=== PATIENT | male | born 1960 ===

== ENCOUNTER 2024-12-13 19:20 | Emergency (ER) | payer MEDICARE, MEDICAID, SELFPAY ==
[2024-12-13 19:27] VITALS: PULSE 87; RESP 20; TEMP 36.7; O2SAT 98
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
[2024-12-13 19:56] LABS: Abs Immature Grans 0.02 10^3/uL (0.0-0.06); Absolute Basophil Count 0.02 10^3/uL (0.0-0.2); Absolute Eosinophil Count 0.15 10^3/uL (0.0-0.7); Absolute Lymphocyte Count 0.84 10^3/uL (1.2-3.4); Absolute Monocyte Count 0.51 10^3/uL (0.1-0.8); Absolute Neutrophil Count 3.88 10^3/uL (1.2-6.7); Basophils % 0.4 %; Eosinophils % 2.8 %; HCT 34.7 % (40.0-50.0); HGB 11.4 g/dL (13.5-17.5); Immature Grans % 0.4 %; Lymphocytes % 15.5 %; MCH 32.1 pg (27.0-33.0); MCHC 32.9 % (32.0-36.0); MCV 98 fL (80-95); MPV 8.8 fL (8.0-11.0); Monocytes % 9.4 %; Neutrophils % 71.5 %; Platelet Count 222 10^3/uL (130-400); RBC 3.55 10^6/uL (4.36-5.78); RDW 13.1 % (11.8-14.1); RDW-SD 46.8 fL; WBC 5.42 10^3/uL (4.4-10.8)
[2024-12-13] MEDS: LORazepam 1 MG TAB PO (20:14)
[2024-12-13] MEDS: OLANZapine ODT 5 MG TAB PO (20:14)
[2024-12-13 20:21] LABS: ALT 17 U/L (16-63); AST 12 U/L (15-37); Albumin 3.3 g/dL (3.4-5.0); Alkaline Phosphatase 141 U/L (46-116); BUN 16 mg/dL (7-18); Bilirubin, Total 0.27 mg/dL (0.2-1.0); CREATININE 0.7 mg/dL (0.70-1.30); Calcium 8.6 mg/dL (8.5-10.1); Chloride 106 mmol/L (98-107); Estimated GFR 103.53 (mL/min/1.73m2); Glucose 97 mg/dL (74-106); Magnesium 1.5 mg/dL (1.8-2.4); Potassium 3.4 mmol/L (3.5-5.1); Sodium 144 mmol/L (136-145); TSH (W/Ref FT4) 2.65 uIU/mL (0.36-3.74)
[2024-12-13 20:23] LABS: ETHANOL BLOOD < 3.0 mg/dL (<10)
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
[2024-12-14] MEDS: Magnesium Gluconate 500 MG TAB PO (08:45)
[2024-12-14] MEDS: OLANZapine ODT 5 MG TAB PO ×2 (08:45→19:17)
[2024-12-14] MEDS: LORazepam 1 MG TAB PO ×2 (08:46→19:17)
[2024-12-14 08:55] VITALS: BP 132/66; PULSE 68; RESP 18; TEMP 36; O2SAT 95
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
--- NOTE | 2024-12-14 18:41 | CMPROGNOTE_ITS ---
Date of service: 12/14/24 Time of Service: 18:41 Care Management Progress Note Progress Note Text Progress Note Text: CM huddled with staff this morning to discuss Scott's plan of care. He was brought in by [facility] on a warrant/EE hold, and at that time, the second c ertification was pending. Scott is a DS client who has been having increasing concerning behaviors in the community. He has been housed recently at [facility] crisis beds in [place] and [facility], and was recently hospitalized at [facility] and [facility]. He has been reportedly aggressive toward staff, incontinent of urine and feces, and has been wandering out of the crisis beds without shoes, which has led to wounds on his feet. While in zone B, he has been ambulatory, and has shown intermittent aggression toward staff. His second certification was not upheld, therefore [facility] has dete rmined that he is not a person in need of psychiatric care. [facility] held a meeting with DS staff, ES staff, and the [facility] clinical laboratory medical director; RACHELL asked to be a part of the meeting, along with the RN cofferdam construction supervisor and charge rn in the ED. During this meeting, [facility] staff expressed concern about caring for Scott in the community. They have at times, required 4:1 staffing for Scott, due to his behaviors. [facility] does not have the capacity to staff Scott 4:1, therefore his aggressive behavior is also a risk to [facility] staff. DS staff reached out to GISELL today, who assisted in sending a referral to [facility], a SNF that can handle difficult behaviors; this is a long-term plan and can take weeks/months for admission, if accepted. RACHELL notified staff that now that Scott is no longer a medical or psychiatric patient, he will need to be discharged to their care, as they are his medical home in the community. Based on documentation, and reports from staff, Scott's behaviors are chronic, although they appear to have been escalating over the past nine months. staff asked for [facility] to hold Scott overnight, and to take a closer look at his feet, as they are concerned with the wounds he presented with. Dr. Fontanez agreed to attempt to do this, although it appears he had a thorough exam and medical clearance on 12/13/24. RACHELL also informed [facility] that Scott has the right to refuse care, which has been a pattern they noted within the community. CM asked that [facility] DS contact [facility] ED charge rn tomorrow by noon to discuss their discharge plan for Scott. If there is a medical reason for admission, [facility] staff will notify DS. [facility] has requested a nurse to nurse report prior to Scott's discharge. See below for DS contact information. CM will continue to follow. Kenia Sampson [facility] DS Director: [phone] Danyell Atkinson [facility] Watch Guard Gate: [phone] (H); [phone] (C) Sagrario Alvarez [facility] DS RN: [phone] Social Determinants of Health Screening Will the Patient Participate in the Screening?: Unable to obtain
--- NOTE | 2024-12-14 18:41 | PDOC.CMPRO ---
Date of service: 12/14/24 Time of Service: 18:41 Care Management Progress Note Progress Note Text Progress Note Text: CM huddled with staff this morning to discuss Scott's plan of care. He was brought in by [facility] on a warrant/EE hold, and at that time, the second certification was pending. Scott is a DS client who has been having increasing concerning behaviors in the community. He has been housed recently at [facility] crisis beds in [place] and [facility], and was recently hospitalized at [facility] and [facility]. He has been reportedly aggressive toward staff, incontinent of urine and feces, and has been wandering out of the crisis beds without shoes, which has led to wounds on his feet. While in zone B, he has been ambulatory, and has shown intermittent aggression toward staff. His second certification was not upheld, therefore [facility] has determined that he is not a person in need of psychiatric care. [facility] held a meeting with DS staff, ES staff, and the [facility] medical resident; CM asked to be a part of the meeting, along with the RN branch logistics supervisor and charger operator helper in the ED. During this meeting, [facility] staff expressed concern about caring for Scott in the community. They have at times, required 4:1 staffing for Scott, due to his behaviors. [facility] does not have the capacity to staff Scott 4:1, therefore his aggressive behavior is also a risk to [facility] staff. staff reached out to GISELL today, who assisted in sending a referral to [facility], a SNF that can handle difficult behaviors; this is a retirement plan and can take weeks/months for admission, if accepted. CM notified staff that now that Scott is no longer a medical or psychiatric patient, he will need to be discharged to their care, as they are his medical home in the community. Based on documentation, and reports from staff, Scott's behaviors are chronic, although they appear to have been escalating over the past nine months. staff asked for [facility] to hold Scott overnight, and to take a closer look at his feet, as they are concerned with the wounds he presented with. Dr. Fontanez agreed to attempt to do this, although it appears he had a thorough exam and medical clearance on 12/13/24. RACHELL also informed [facility] that Scott has the right to refuse care, which has been a pattern they noted within the community. CM asked that [facility] DS contact [facility] ED charger operator helper tomorrow by noon to discuss their discharge plan for Scott. If there is a medical reason for admission, [facility] staff will notify DS. [facility] has requested a nurse to nurse report prior to Scott's discharge. See below for DS contact information. CM will continue to follow. Kenia Sampson [facility] DS Director: [phone] Danyell Atkinson [facility] Control Room Tender: [phone] (H); [phone] (C) Sagrario Alvarez [facility] DS RN: [phone] Social Determinants of Health Screening Will the Patient Participate in the Screening?: Unable to obtain
--- NOTE | 2024-12-14 19:54 | W.EDPROG ---
Date of service: 12/14/24 Time of Service: 21:34 Medical Decision Making In brief, this is a 64-year-old male patient with a history of psychiatric and mood disturbances, resides at a care facility, brought in with increasingly aggressive behaviors. Prior to my taking over their care, the patient was medically cleared, and has been resting comfortably. He has been taking his medications voluntarily and has not had aggressive behaviors towards our staff members over my shift. They have met with the nursing home social worker and did not meet criteria for involuntary hold. The patient does have some injuries/wounds to his feet, which were documented by the prior provider, and for which the patient is currently declining wound care bandaging. Plan to have the patient return to his care facility tomorrow as long as his behaviors continue to be well-controlled here in the emergency department. The patient was signed out to the oncoming provider prior to final disposition. Remained hemodynamically appropriate, calm, cooperative, and comfortable while under my care. Debbie Rob MD Medical Records Medical records reviewed: Yes I reviewed the patient's medical records. Lab Data Lab results reviewed: Yes I reviewed the patient's lab results. Quality:SDOH Health Related Social Needs: No Data to Display Discharge Plan Discharge Details Chief Complaint: PsychEval Clinical Impression: Aggressive behavior Primary Care Provider: Unknown,Unknown ED Provider: Debbie Rob Home Meds and New Rx's Prescriptions: No Action olanzapine 5 mg tablet,disintegrating 5 mg PO BID lorazepam [Ativan] 1 mg tablet 1 mg PO TID Rx Instructions: ALSO X2 PRN DOSES AVAILABLE
--- NOTE | 2024-12-15 07:17 | ED.PROG_ITS ---
Date of service: 12/15/24 Time of Service: 07:17 Medical Decision Making No acute overnight events, anticipate return to care facility today. 9 AM I spoke to Danyell Cole, medical officer psychiatry [facility], she is helping to arrange for the patient to return to his residential. 4:20 PM Patient's nurse Doug will travel to basic EMS crew to bring the patient back to his residential. I have ordered him 5 mg midazolam as needed for agitation. He will receive 2 mg of oral lorazepam prior to transport. Quality:SDOH Health Related Social Needs: No Data to Display Discharge Plan Disposition Patient Disposition: Home Discharge Details Clinical Impression: Aggressive behavior Primary Care Provider: Unknown,Unknown ED Provider: Felipe Fontanez [place] Meds and New Rx's Prescriptions: Continued olanzapine 5 mg tablet,disintegrating 5 mg PO BID lorazepam [Ativan] 1 mg tablet 1 mg PO TID Rx Instructions: ALSO X2 PRN DOSES AVAILABLE Discharge Instructions Additional Instructions: You are seen in the emergency department for your agitation. Please continue taking your home medications as previously prescribed. If you do not feel safe at home please return to the emergency department. Discharge Data Discharge Date/Time-TO BE ENTERED AT DEPARTURE: 12/15/24 17:14
[2024-12-15] MEDS: LORazepam 1 MG TAB PO ×2 (15:48→16:45)
== END 2024-12-15 17:14 | disposition home or self-care (01) ==
PROVIDERS: Emergency Medicine; Emergency Provider Emergency Medicine
DX: R45.1 Restlessness and agitation (principal); F89 Unspecified disorder of psychological development; T33.822A Superficial frostbite of left foot, initial encounter; T33.821A Superficial frostbite of right foot, initial encounter; X31.XXXA Exposure to excessive natural cold, initial encounter; Y93.01 Activity, walking, marching and hiking
CPT/HCPCS: 00123; 80053; 80307; 99285; 80320; 81003; 83735; 84443; 85025

== ENCOUNTER 2024-12-17 15:42 | Observation (INO) | payer MEDICARE, MEDICAID, SELFPAY ==
[2024-12-17] VITALS (28 sets, daily range): BP systolic 120–149; BP diastolic 46–95; PULSE 60–118; RESP 16; TEMP 37.5; O2SAT 80–100
--- NOTE | 2024-12-17 15:45 | DI.CT_ITS ---
Exam(s) CT HEAD WO EXAM: CT HEAD WO CLINICAL HISTORY: AMS, increased agitation, hx frontal lobe dementia. TECHNIQUE: Imaging Protocol: Axial computed tomography images with coronal and sagittal reformatted images were created and reviewed COMPARISON: No exams were available for comparison FINDINGS: Ventricles and Extra axial spaces: Normal in size and morphology for the patient's age. Hemorrhage: None. Cerebral parenchyma: There are areas of decreased attenuation in the white matter consistent with chr onic microvascular ischemic disease. No acute mass effect is identified. Midline shift: None. Brainstem/Cerebellum: Normal. Calvarium: Normal. Visualized Paranasal sinuses/Mastoids: Clear. Soft Tissues: Unremarkable. IMPRESSION: No acute intracranial process. RADIATION DOSE DELIVERED: 946.29mGy.cm Total DLP DATA REPOSITORY: All CT scans at this facility are submitted to the National Radiology Data Registry (NRDR) Dose Index Registry (DIR) with the [employer] (ACR). RADIATION OPTIMIZATION: All CT scans at this facility use at least one of these dose optimization te chniques: automated exposure control; mA and/or kV adjustment per patient size (includes targeted exa ms where dose is matched to clinical indication); or iterative reconstruction.
--- NOTE | 2024-12-17 15:53 | DI.RAD_ITS ---
Exam(s) XR CHEST 1V IN DI DEPT EXAM: XR CHEST 1V IN DI DEPT CLINICAL HISTORY: AMS, sepsis work up TECHNIQUE: 2D digital imaging was performed of the chest. One image was obtained. An AP view was ob tained. COMPARISON: No exams were available for comparison FINDINGS: MEDIASTINUM: Normal. HEART: Normal. PULMONARY VASCULATURE: Normal. LUNGS: Question of a faint rounded density projected over the right mid lung. This may represent a s uperimposition of shadows. The lungs are otherwise clear. PLEURAL SPACE: No pleural effusion or pneumothorax. BONE:Within normal limits for the patient's age. OTHER FINDINGS:Normal. IMPRESSION: Question of a faint rounded density projected over the right mid lung. A PA and lateral view of the chest in the department is recommended for further evaluation. DATA REPOSITORY: RADIATION DOSE DELIVERED:
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
[2024-12-17 16:23] LABS: Lactate 3.2 mmol/L (<or=2.0)
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
[2024-12-17 16:30] LABS: Abs Immature Grans 0.01 10^3/uL (0.0-0.06); Absolute Basophil Count 0.01 10^3/uL (0.0-0.2); Absolute Eosinophil Count 0.05 10^3/uL (0.0-0.7); Absolute Monocyte Count 0.46 10^3/uL (0.1-0.8); Absolute Neutrophil Count 3.23 10^3/uL (1.2-6.7); Basophils % 0.2 %; Eosinophils % 1.1 %; HCT 32.6 % (40.0-50.0); HGB 10.6 g/dL (13.5-17.5); Immature Grans % 0.2 %; Lymphocytes % 15.7 %; MCHC 32.5 % (32.0-36.0); MCV 102 fL (80-95); MPV 8.9 fL (8.0-11.0); Monocytes % 10.3 %; Neutrophils % 72.5 %; Platelet Count 199 10^3/uL (130-400); RBC 3.21 10^6/uL (4.36-5.78); RDW 13.4 % (11.8-14.1); RDW-SD 49.6 fL; WBC 4.46 10^3/uL (4.4-10.8)
[2024-12-17] MEDS: Lactated Ringers 1,000 ML 1000 ML IV (16:39)
[2024-12-17 16:41] LABS: INR 1.8 (0.9-1.1); Prothrombin Time 17.5 sec (9.1-11.1)
[2024-12-17 16:56] LABS: ALT 19 U/L (16-63); AST 20 U/L (15-37); Albumin 2.8 g/dL (3.4-5.0); Alkaline Phosphatase 121 U/L (46-116); Anion Gap 8.2 mmol/L (3-11); BUN 17 mg/dL (7-18); Bilirubin, Total 0.34 mg/dL (0.2-1.0); CO2 29.8 mmol/L (21.0-32.0); CREATININE 0.6 mg/dL (0.70-1.30); Chloride 107 mmol/L (98-107); Estimated GFR 108.47 (mL/min/1.73m2); Glucose 107 mg/dL (74-106); Magnesium 1.7 mg/dL (1.8-2.4); Potassium 3.6 mmol/L (3.5-5.1); Sodium 145 mmol/L (136-145); TSH (W/Ref FT4) 1.85 uIU/mL (0.36-3.74); Total Protein 6.6 g/dL (6.4-8.2); Troponin I 7 ng/L (<or=76)
[2024-12-17 17:31] LABS: Troponin I 12 ng/L (<or=76)
[2024-12-17 18:50] LABS: TROPONIN-I < 0.5 ug/mL (4.0-12.0)
[2024-12-17 20:59] LABS: Bilirubin Negative (Negative); Blood Trace-intact (Negative); Clarity Clear (Clear); Glucose Negative (Negative); Ketones Negative (Negative); Leukocyte Esterase Negative (Negative); Nitrite Negative (Negative); Specific Gravity 1.015 (1.005-1.025)
[2024-12-17 21:04] LABS: WBC 0-2 HPF (0-5)
[2024-12-17 21:05] LABS: Bacteria Rare HPF (Negative); C & S Indicated? No; Casts Negative LPF (Negative); Crystals Negative HPF (Negative); Epithelial Cells Negative HPF (Negative); Mucus Trace (Negative); RBC 0-2 HPF (0-2)
--- NOTE | 2024-12-17 22:39 | W.PM.HP.N ---
Date of service: 12/17/24 Time of Service: 22:39 Assessment and Plan Assessment and plan (1) Cellulitis: Start date: 12/17/24 Status: Acute Assessment and plan: This is a 64-year-old gentleman who lives in a skilled nursing and is doing poorly with self-care. He recently had decompensation after walking and very cold weather where he wanders outside sustaining at least second-degree frostbite over his soles now appearing infected be superficially with fecal contamination and growth of maggots in his wound. He was given 1 dose of vancomycin but will be switched to Augmentin 875 mg twice daily. He also may have an infiltrate over his lung bose though he has had no respiratory symptoms. He refused viral screening. Augmentin should cover pneumonic process as well. Wound care to be consulted and social media marketing manager for placement to level 2 facility would be appropriate. The patient does not appear to be able to take care of himself and take his own medications. He also wonders which requires increased supervision. He is also very poor with his hygiene having a history of throwing his feces around and being incontinent of feces. He may have advancing follow-up dementia. He will be admitted for observation to have all of the services reviewed before plans for long-term care. Follow-up chest x-ray. He is a full code. (2) Frostbite of both feet: Start date: 12/17/24 Status: Acute Assessment and plan: Patient appears to have at least second-degree frostbite over his feet by history and initial evaluation in ED. Wound care was consulted. Continue Augmentin for possible secondary infection. (3) Hypomagnesemia: Start date: 12/17/24 Status: Acute Assessment and plan: Replete IV and follow-up lab daily. (4) Frontal lobe dementia: Status: Chronic Assessment and plan: Continue Zyprexa and Ativan as needed. Supervision of meds would be better. (5) Epilepsy: Assessment and plan: No antibiotic medication listed on his medication list and this need to be reviewed with his skilled nursing and PCP. Follow-up clinically. History of Present Illness History of Present Illness Chief Complaint: Increased confusion and inability to walk with wounds over feet. Narrative: This is a 64-year-old male patient who has a history of frontal lobe dementia on Zyprexa twice daily which she has to take on his own and has been missing. He recently wandered outside in negative second-degree weather and had blisters over the feet which have been contaminated with his incontinent stool and poor hygiene. Over the last 2 to 3 days he had decreased ability to take care of himself and walk and has been missing his medications. He is over seizures and is skilled nursing for concern about his wounds being infected with his stool contamination and swelling. He also is more confused. He was brought to the ED and his wounds were evaluated and cleaned with fecal material removed and maggots being removed. There was some swelling but no erythema or increased warmth and the patient was tender over his feet. He also had increased confusion and imaging did not reveal any acute changes in the CT of the head and the chest x-ray had suspicion of right opacity which will be followed up. He did not have any lower respiratory symptoms. He had no fever. Has had no cough or upper respiratory symptoms. The patient was agitated in the ED and was given his usual late day medications upon admission. He was assessed as not being able to take care of himself in his present living situation and was admitted to observation for treatment of his contaminated and at least superficially infected feet from frostbite with blistering and for follow-up on his chest x-ray with abnormalities. He did not have fever or elevation in his WBC. He did not allow nasal swab for flu/RSV/COVID screening. He is a full code. Review of Systems Narrative: 13 point review of systems otherwise unobtainable or reported as stable. PFS All Active Problems (Updated 12/18/24 @ 02:21 by Harman Parsons) Hypomagnesemia (Acute) Incontinence of feces (Acute) Infected wound (Acute) Cellulitis (Acute) Frostbite of both feet (Acute) Frontal lobe dementia (Chronic) Aggressive behavior (Acute) Medical History Epilepsy Intellectual disability Social History Smoking/Tobacco Use Status: Never Smoking risk assessment performed?: Yes Alcohol Intake: never Drug use: Never Substance use type: does not use Housing: assisted living facility Additional Social history: [employer] Meds Allergies and Home Medications Allergies Allergy/AdvReac Type Severity Reaction Status Date / Time grass pollen Allergy Intermediate Itching Verified 12/13/24 19:37 house dust mite Allergy Mild Skin Rash Verified 12/13/24 19:37 Home Medications ?Medication ?Instructions ?Recorded ?Confirmed ?Type lorazepam 1 mg tablet (Ativan) 1 mg PO TID 12/13/24 12/17/24 History olanzapine 5 mg disintegrating 5 mg PO BID 12/13/24 12/17/24 History tablet Exam Narrative Exam Narrative: General: Patient is abnormally thin, disheveled with unkempt hair and lock and easily agitated upon approach. With complaint approach the patient allowed exam. He was at least oriented to place. He was intermittently in distress especially when examining feet which were tender. HEENT: Normocephalic, course and facial features, unkempt facial hair and hair, eyes with pupils equal and reactive to light specially, extraocular movement intact and sclera anicteric. Oropharynx with poor dentition and moist mucosa. Neck: Supple without JVD. Back: Normal posture without CVA tenderness. Lungs: Decreased aeration of the right hemithorax compared to left otherwise clear to auscultation and percussion but no focalizing rales or rhonchi. No expiratory wheeze. Heart: Regular rate and rhythm with no murmurs or gallops appreciated. Abdomen: Scaphoid contour, soft and nontender to palpation no palpable hepatosplenomegaly. Genitalia/rectal: Exam deferred. Extremities: Swelling over the feet with feet bandaged and tender to palpation. Description by nurses of blistering with fecal contamination and 1-3 maggots found over his feet before cleansing. No increased warmth to touch. Atrophic scarred legs below the knee with no open sores. No joint swelling. Fair cap refill. Skin: Scarring with loss of hair over legs, otherwise normal color, warm and dry. Skin over the feet were not examined with bandages in place. Neuro: Cranial nerves II through XII appear to be gross intact. No focal motor deficits and no tremor. No increased tone. Psych: Agitated with abnormal mood but not delusional being able to converse once called. No abnormal thought processes manifested. Remote and recent memory not testable with patient's frontal lobe dementia and acute decompensation. There does not appear to be encephalopathic symptoms but possibly slightly worse than baseline dementia. Results Imaging Imaging Studies: EXAM: CT HEAD WO CLINICAL HISTORY: AMS, increased agitation, hx frontal lobe dementia. TECHNIQUE: Imaging Protocol: Axial computed tomography images with coronal and sagittal reformatted images were created and reviewed COMPARISON: No exams were available for comparison FINDINGS: Ventricles and Extra axial spaces: Normal in size and morphology for the patient's age. Hemorrhage: None. Cerebral parenchyma: There are areas of decreased attenuation in the white matter consistent with chronic microvascular ischemic disease. No acute mass effect is identified. Midline shift: None. Brainstem/Cerebellum: Normal. Calvarium: Normal. Visualized Paranasal sinuses/Mastoids: Clear. Soft Tissues: Unremarkable. IMPRESSION: No acute intracranial process. EXAM: XR CHEST 1V IN DI DEPT CLINICAL HISTORY: AMS, sepsis work up TECHNIQUE: 2D digital imaging was performed of the chest. One image was obtained. An AP view was obtained. COMPARISON: No exams were available for comparison FINDINGS: MEDIASTINUM: Normal. HEART: Normal. PULMONARY VASCULATURE: Normal. LUNGS: Question of a faint rounded density projected over the right mid lung. This may represent a superimposition of shadows. The lungs are otherwise clear. PLEURAL SPACE: No pleural effusion or pneumothorax. BONE:Within normal limits for the patient's age. OTHER FINDINGS:Normal. IMPRESSION: Question of a faint rounded density projected over the right mid lung. A PA and lateral view of the chest in the department is recommended for further evaluation. Labs 12/17/24 16:09 12/17/24 16:09 Labs: Laboratory Results - last 24 hr 12/17/24 12/17/24 12/17/24 16:09 16:23 17:11 WBC 4.46 RBC 3.21 L Hgb 10.6 L Hct 32.6 L MCV 102 H D MCH 33.0 MCHC 32.5 RDW 13.4 Plt Count 199 MPV 8.9 Immature Gran % 0.2 Neutrophils % 72.5 Lymphocytes % 15.7 Monocytes % 10.3 Eosinophils % 1.1 Basophils % 0.2 Nucleated RBC % 0.0 Absolute Neutrophils 3.23 Absolute Lymphocytes 0.70 L Absolute Monocytes 0.46 Absolute Eosinophils 0.05 Absolute Basophils 0.01 PT 17.5 H INR 1.8 H VBG Lactate 3.2 H* Sodium 145 Potassium 3.6 Chloride 107 Carbon Dioxide 29.8 Anion Gap 8.2 BUN 17 Creatinine 0.6 L Est GFR (CKD-EPI 2020) 108.47 Glucose 107 H Calcium 9.0 Magnesium 1.7 L Total Bilirubin 0.34 AST 20 ALT 19 Alkaline Phosphatase 121 H Troponin I 7 12 Total Protein 6.6 Albumin 2.8 L TSH 1.85 Urine Color Urine Clarity Urine pH Ur Specific [place] Urine Protein Urine Ketones Urine Blood Urine Nitrite Urine Bilirubin Urine Urobilinogen Ur Leukocyte Esterase Urine RBC Urine WBC Ur Epithelial Cells Urine Crystals Urine Bacteria Urine Casts Urine Mucus Ur Culture Indicated? Urine Glucose Carbamazepine 12/17/24 12/17/24 12/17/24 18:15 18:53 20:52 WBC RBC Hgb Hct MCV MCH MCHC RDW Plt Count MPV Immature Gran % Neutrophils % Lymphocytes % Monocytes % Eosinophils % Basophils % Nucleated RBC % Absolute Neutrophils Absolute Lymphocytes Absolute Monocytes Absolute Eosinophils Absolute Basophils PT INR VBG Lactate Sodium Potassium Chloride Carbon Dioxide Anion Gap BUN Creatinine Est GFR (CKD-EPI 2020) Glucose Calcium Magnesium Total Bilirubin AST ALT Alkaline Phosphatase Troponin I Cancelled Total Protein Albumin TSH Urine Color Yellow Urine Clarity Clear Urine pH 7.0 Ur Specific [place] 1.015 Urine Protein Negative Urine Ketones Negative Urine Blood Trace-intact H Urine Nitrite Negative Urine Bilirubin Negative Urine Urobilinogen 1.0 H Ur Leukocyte Esterase Negative Urine RBC 0-2 Urine WBC 0-2 Ur Epithelial Cells Negative Urine Crystals Negative Urine Bacteria Rare Urine Casts Negative Urine Mucus Trace Ur Culture Indicated? No Urine Glucose Negative Carbamazepine < 0.5 L Last Vital Signs Temp 37.5 C 12/17/24 15:50 Pulse 88 12/17/24 20:52 Resp 16 12/17/24 15:50 BP 124/76 12/17/24 20:52 Pulse Ox 100 12/17/24 20:52 Time Spent Time spent with Patient: >75 minutes Time was spent: preparing to see the patient(eg.review tests), obtaining and/or reviewing separately otained hiistory, ordering medications,tests, procedures, indepentently interpreting results and care coordination
[2024-12-17] MEDS: Amoxicillin 875/Clav. 125 TAB PO (22:47)
[2024-12-17 23:51] LABS: Lactate 2.1 mmol/L (<or=2.0)
[2024-12-18] MEDS: LORazepam 2 MG/ML VIAL (02:57)
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
[2024-12-18 11:16] VITALS: RESP 19
[2024-12-18] MEDS: LORazepam 2 MG/ML VIAL 1 MG IM (13:22)
--- NOTE | 2024-12-18 14:35 | PGE_ITS ---
Date of Service Date of service: 12/18/24 Time of Service: 14:45 Assessment and Plan Assessment and plan (1) Infected wound: Status: Acute Assessment and plan: - patient was initially given IV vanco in ER, this was changed over to Augmentin 875mg PO BID by night physician due to difficulties with IV. will continue for now pending cultures - i did send message out to Dr. Issa from podiatry to evaluate for further wound care - would consider imaging, but will hold off for now pending pods eval as this will definitely require conscious sedation - labs not obtained this AM, this will certainly be difficult moving forward in terms of monitoring treatment. i do see that the patient does not have a leukocytosis on initial draw (2) Frostbite of both feet: Status: Acute Assessment and plan: - wound care per pods, otherwise as noted above (3) Frontal lobe dementia: Status: Chronic Assessment and plan: - for now, patient is calm as long he is not disturbed. continue meds as ordered including scheduled ativan and olanzipine. nursing reports that patient will accept PO medications Subjective Subjective Interval history since last seen: Patient seen. Patient very combative, could not examine effectively at first. Patient was given ativan 1mg IM (would not let nurse access IV) and then held down by multiple staff members so i could examine his feet. Patient is unable to give any history or relevent details. Exam Extrem Other: multiple shallow ulcerations of both feet. most concerning is R foot with 2cm round ulceration on sole in mid-ball area that has some purulent discharge. this was cultured by nursing Objective Last Vital Signs Temp 37.5 C 12/17/24 15:50 Pulse 88 12/17/24 20:52 Resp 19 12/18/24 11:16 BP 124/76 12/17/24 20:52 Pulse Ox 100 12/17/24 20:52 Laboratory Results - last 24 hr 12/17/24 12/17/24 12/17/24 16:09 16:23 17:11 WBC 4.46 RBC 3.21 L Hgb 10.6 L Hct 32.6 L MCV 102 H D MCH 33.0 MCHC 32.5 RDW 13.4 Plt Count 199 MPV 8.9 Immature Gran % 0.2 Neutrophils % 72.5 Lymphocytes % 15.7 Monocytes % 10.3 Eosinophils % 1.1 Basophils % 0.2 Nucleated RBC % 0.0 Absolute Neutrophils 3.23 Absolute Lymphocytes 0.70 L Absolute Monocytes 0.46 Absolute Eosinophils 0.05 Absolute Basophils 0.01 PT 17.5 H INR 1.8 H VBG Lactate 3.2 H* Sodium 145 Potassium 3.6 Chloride 107 Carbon Dioxide 29.8 Anion Gap 8.2 BUN 17 Creatinine 0.6 L Est GFR (CKD-EPI 2020) 108.47 Glucose 107 H Calcium 9.0 Magnesium 1.7 L Total Bilirubin 0.34 AST 20 ALT 19 Alkaline Phosphatase 121 H Troponin I 7 12 Total Protein 6.6 Albumin 2.8 L TSH 1.85 Urine Color Urine Clarity Urine pH Ur Specific [place] Urine Protein Urine Ketones Urine Blood Urine Nitrite Urine Bilirubin Urine Urobilinogen Ur Leukocyte Esterase Urine RBC Urine WBC Ur Epithelial Cells Urine Crystals Urine Bacteria Urine Casts Urine Mucus Ur Culture Indicated? Urine Glucose Carbamazepine 12/17/24 12/17/24 12/17/24 18:15 18:53 20:52 WBC RBC Hgb Hct MCV MCH MCHC RDW Plt Count MPV Immature Gran % Neutrophils % Lymphocytes % Monocytes % Eosinophils % Basophils % Nucleated RBC % Absolute Neutrophils Absolute Lymphocytes Absolute Monocytes Absolute Eosinophils Absolute Basophils PT INR VBG Lactate Sodium Potassium Chloride Carbon Dioxide Anion Gap BUN Creatinine Est GFR (CKD-EPI 2020) Glucose Calcium Magnesium Total Bilirubin AST ALT Alkaline Phosphatase Troponin I Cancelled Total Protein Albumin TSH Urine Color Yellow Urine Clarity Clear Urine pH 7.0 Ur Specific [place] 1.015 Urine Protein Negative Urine Ketones Negative Urine Blood Trace-intact H Urine Nitrite Negative Urine Bilirubin Negative Urine Urobilinogen 1.0 H Ur Leukocyte Esterase Negative Urine RBC 0-2 Urine WBC 0-2 Ur Epithelial Cells Negative Urine Crystals Negative Urine Bacteria Rare Urine Casts Negative Urine Mucus Trace Ur Culture Indicated? No Urine Glucose Negative Carbamazepine < 0.5 L 12/17/24 23:45 WBC RBC Hgb Hct MCV MCH MCHC RDW Plt Count MPV Immature Gran % Neutrophils % Lymphocytes % Monocytes % Eosinophils % Basophils % Nucleated RBC % Absolute Neutrophils Absolute Lymphocytes Absolute Monocytes Absolute Eosinophils Absolute Basophils PT INR VBG Lactate 2.1 Sodium Potassium Chloride Carbon Dioxide Anion Gap BUN Creatinine Est GFR (CKD-EPI 2020) Glucose Calcium Magnesium Total Bilirubin AST ALT Alkaline Phosphatase Troponin I Total Protein Albumin TSH Urine Color Urine Clarity Urine pH Ur Specific [place] Urine Protein Urine Ketones Urine Blood Urine Nitrite Urine Bilirubin Urine Urobilinogen Ur Leukocyte Esterase Urine RBC Urine WBC Ur Epithelial Cells Urine Crystals Urine Bacteria Urine Casts Urine Mucus Ur Culture Indicated? Urine Glucose Carbamazepine Time Spent with Patient Time Spent with Patient: 25-34 minutes Time was spent: preparing to see the patient(eg.review tests), ordering medications,tests, procedures, counseling the patient and care coordination
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
[2024-12-18] MEDS: OLANZapine ODT 5 MG TAB PO (20:19)
[2024-12-18] MEDS: LORazepam 1 MG TAB PO ×2 (20:19→22:49)
[2024-12-18] MEDS: Amoxicillin 875/Clav. 125 TAB PO (20:19)
--- NOTE | 2024-12-18 23:37 | NUR.NOTE ---
Nursing Note: Pt change due to soiled brief. Securities involved. Total of 5 people to change. Pt followed instruction well while directly being cleaned up. Immediately following, pt threw empty trash can at staff, and a small personal snack bag. Pt frequently pulling at computer, and leaning out of the bed. Pt frequently pulling a cords- all possible cords removed.
--- NOTE | 2024-12-19 00:53 | NUR.NOTE ---
Nursing Note: Pt has disconnected and thrown the computer mouse. Item was removed and cleaned. Provider aware of persisting behaviors.
[2024-12-19] MEDS: LORazepam 1 MG TAB PO ×2 (01:15→11:18)
--- NOTE | 2024-12-19 01:28 | NUR.NOTE ---
Nursing Note: Per YE Hauser, pt got out of bed, and left a scratch. When I approached the door, pt was at the door frame with his brief around his ankles. I requested that the pt go back to bed. Pt turned around and went back to bed. Pt the took brief all the way off and threw it at myself. supervisor pit and auxiliaries notified and came to room. Ativan administered in chocolate ice cream per
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
[2024-12-19] MEDS: Amoxicillin 875/Clav. 125 TAB PO (11:17)
[2024-12-19] MEDS: OLANZapine ODT 5 MG TAB PO (11:17)
--- NOTE | 2024-12-19 11:29 | NUR.NOTE ---
Nursing Note: Patient has been asleep the entire morning, he was waking up long enough to reposition and then fell back asleep. [facility] arrived to speak with patient during a period that he was awake. The [facility] worker was able to sit in the chair for a few minutes and then the patient shouted get out, which the [facility] worker obliged. Two security officers were on standby outside the room during this visit. Shortly after the HS worker left and while security was still on the floor, this nurse approached patient to give morning medications. This nurse came in with the morning medications, needed to get computer on wheels as the computer in the room was not functioning. The patient got very agitated while waiting for computer and told this nurse to get out. This nurse stepped out of the room, at which point the patient threw his breakfast (safety tray) at this nurse. This nurse stood at the door with security, crushed meds, and placed in pudding. This nurse then stepped back into the room, gave the patient the pudding, and the patient was able to finish the pudding. Afterward he threw the pudding container across the room.
--- NOTE | 2024-12-19 11:56 | NUR.NOTE ---
Nursing Note: The patient got up out of bed and was walking around his room very restless. He had only his upper half dressed and was completely nude below the waist. The patient started to walk towards the door with the intention to come out of the room, security was called to be on standby when the patient began ambulating around the room. This nurse stopped the patient at the door and told him that he needed to put his pants on before leaving the room. The patient stopped, turned around, walked back to his bed, crawled in, and covered up in blankets. Security was updated and left the floor. Noted small spot of blood on the floor from patients foot wounds, unable reassess/redress due to patient agitation at this time.
--- NOTE | 2024-12-19 13:17 | NUR.NOTE ---
Nursing Note: The patient woke up and threw his full cup of water across the room. He then settled down in bed.
--- NOTE | 2024-12-19 13:39 | NUR.NOTE ---
Nursing Note: This nurse attempted to give afternoon medication, this nurse walked in and was immediately told to get out. He then threw his chocolate pudding at me, medication has been returned to [facility].
--- NOTE | 2024-12-19 14:00 | SUR.INTRAOP ---
Patient threw MS mug towards staff. Mug was empty. Patient is agitated and continued to refuse medication.
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
--- NOTE | 2024-12-19 15:37 | NUR.NOTE ---
Nursing Note: This nurse reattempted to give afternoon medication, the patient proceeded to throw the pudding across the room at this nurse. The medication was retrieved from the floor and wasted with witness.
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
[2024-12-19] MEDS: LORazepam 2 MG/ML VIAL IM (20:43)
--- NOTE | 2024-12-19 21:21 | NUR.NOTE ---
Nursing Note: Pt frequently out of bed to door frame, further damaging feet. Pt has taken most of his wound dressings off and thrown them around the room. Pt got out of bed, tried to enter room 210. When redirected, pt swung at [facility]. Pt then escorted back to bed by myself and security. Pt then swung at security. Pt stayed in bed for about 20 minutes. Pt got out of bed again and asked to return to bed. Pt again escorted to bed by security and myself. Pt agitated, swung again at myself once back in bed. Frequently out of bed back and forth to [facility]. Plan prior to IM administration: 3 staff for restraint and myself for administration. Administration site Left glute. Two staff for BUE, 1 staff for BLE. Just prior to IM Lorazepam administration I stated to pt that he was getting a shot of Ativan to help keep him and others safe. Medication administered without issue per MAR.
[2024-12-19 21:36] VITALS: RESP 19
[2024-12-19 22:00] VITALS: RESP 16
[2024-12-19 23:00] VITALS: RESP 16
--- NOTE | 2024-12-19 23:56 | NUR.NOTE ---
Nursing Note: pt currently awake. pt requested pizza, I offered pudding. Pt swatted when handed pudding. Pt offered carrots, which he ate yesterday. Pt threw plate of carrots at nursing staff. Pt also threw blanket and pants at staff.
[2024-12-20] VITALS: RESP 16
[2024-12-20 01:00] VITALS: RESP 16
--- NOTE | 2024-12-20 08:54 | NUR.NOTE ---
Nursing Note: Pt was asleep when this nurse came on shift. Breakfast was brought on safety tray and placed outside the room. The pt then woke up, this nurse asked if he would like breakfast and he said yes. Security was called prior to entering room, upon entering the room this nurse brought in breakfast tray and security followed. Breakfast tray was set on bedside table within pts reach. Both this nurse and security then walked out of the room, before we reached the door the pt threw his breakfast tray at us and it landed on the floor. The pt then settled back into bed once we were out of the room.
--- NOTE | 2024-12-20 09:44 | NUR.NOTE ---
Nursing Note: Pt woke up and threw his cloths, pushed side table, and told staff to verbally get out. Security was able to redirect pt back to his bed, Dr. Walls was in hallway and verbally updated about pts refusal to take morning medications or complete dressing change.
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
[2024-12-20] MEDS: LORazepam 2 MG/ML VIAL 1 MG IM (10:19)
--- NOTE | 2024-12-20 10:35 | NUR.NOTE ---
Nursing Note: This nurse was told that patients discharge order has been placed and that they requested that he have his dressing changed and medicated prior to transfer. Ness Thibodeaux in care management spoke with Dr. Walls about medication options as the patient as been agitated this morning (throwing things at staff, yelling get out, refusing care, and attempting to leave room requiring redirection). IM Ativan order was placed to help with agitation and patient safety prior to dressing change and transfer. This nurse with two security officers, lead nurse, one aid, and preceptee approached patient to give medication and dressing change. This nurse explained to patient that we were going to change his dressings and that prior to that we had a shot with Ativan in it to help keep him calm, the patient was agreeable and injection was given with no problem in left buttocks. This nurse then changed the dressing on his feet, instructions were relayed in a calm tone and patient was able to participate in following instructions during dressing change. The first dressing was changed without issue and most of the second dressing change was mostly completed. However, pt started to get more agitated. Dressing were completely changed but unable to completely put on the new fitted sheets. Later in the morning around 1041 pt had to be redirected as he fast walked to the room door three different times.
--- NOTE | 2024-12-20 11:53 | CMDISCH_ITS ---
Date of service: 12/20/24 Time of Service: 11:53 LACE Index Scoring Tool Questions: Length of Stay (in days): 3 Was the patient admitted via the E.D.?: Yes Comorbidities: Dementia E.D. Visits: 2 Answers: Total Score: 11 Risk of Readmission: High Risk Care Management Discharge Plan Reason for Hospitalization: cellulitis Discharge Plan: Scott will be discharged back to the [facility] crisis bed. He will transport via facility van with [facility] staff. Scott will follow up with his community providers and plan of care. Patient/Family Education Needs: Review of discharge instructions, limitations, follow up plan and discuss Ask Me Three. SDRI Health Related Social Needs: No Data to Display
== END 2024-12-20 11:37 | disposition other institution (70) ==
LOC: ER 17:50 → EDHOLD 23:20 → MS 12-18 08:31
PROVIDERS: Admitting Provider Family Medicine; Emergency Provider Emergency Medicine; Responsible Provider Hospitalist; Visit Provider Family Medicine
DX: T33.821A Superficial frostbite of right foot, initial encounter (principal); T33.822A Superficial frostbite of left foot, initial encounter; G31.09 Other frontotemporal neurocognitive disorder; F02.C11 Dementia in other diseases classified elsewhere, severe, with agitation; L03.116 Cellulitis of left lower limb; L03.115 Cellulitis of right lower limb; E83.42 Hypomagnesemia; G40.802 Other epilepsy, not intractable, without status epilepticus; R15.9 Full incontinence of feces; L97.522 Non-pressure chronic ulcer of other part of left foot with fat layer exposed; L97.512 Non-pressure chronic ulcer of other part of right foot with fat layer exposed; D64.9 Anemia, unspecified; Z91.83 Wandering in diseases classified elsewhere; X31.XXXA Exposure to excessive natural cold, initial encounter; G40.909 Epilepsy, unspecified, not intractable, without status epilepticus; Z79.899 Other long term (current) drug therapy
CPT/HCPCS: 00123; 80053; 85027; 87040; 87077; 96127; 96361; 96365; 96372; 99223; 99285; 70450; 71045; 80156; 81003; 81015; 83605; 83735; 84443; 84484; 85025; 85610; 87070; 87205; 99231; 99232; 99239; G0378; J2060; J3370

== ENCOUNTER 2024-12-21 19:38 | Emergency (ER) | payer MEDICARE, MEDICAID, SELFPAY ==
[2024-12-21] VITALS (16 sets, daily range): BP systolic 154; BP diastolic 36; PULSE 61–115; RESP 18–20; TEMP 36; O2SAT 97–100
[2024-12-21] MEDS: Droperidol 5 MG/2 ML VIAL (19:46)
[2024-12-21] MEDS: Midazolam 2 MG/2 ML VIAL (20:09)
[2024-12-21] MEDS: Midazolam 2 MG/2 ML VIAL 3 MG IM (20:29)
--- NOTE | 2024-12-21 20:38 | NUR.NOTE ---
Pt limbs being held for his safety and the safety of others. IM meds have been give, see MAR. Trial of not holding limb was done and pt again became combative and restless. Staff holding limbs again.
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
[2024-12-21] MEDS: Collagenase 30 GM TUBE TP (23:15)
--- NOTE | 2024-12-21 23:59 | W.EDPROG ---
Date of service: 12/22/24 Time of Service: 06:21 Medical Decision Making Patient signed out to me due to inability to safely discharge patient. He has been staying in a crisis bed but has become too much for staff there. He is medically cleared, Dr. Rob reports that his feet look quite good. He has been refusing medications at the crisis bed. He is not suicidal or homicidal but he is impulsive, difficult to control, lacks capacity to make decisions due to his dementia. Reportedly referrals have been placed by the director of crisis beds for higher level of care. He has been given a dose of IM Zyprexa around midnight and again this morning mostly for agitation and being aggressive. Trying to avoid physical restraints since the seem to potentially aggravate him more. He will be signed out to the [facility] day physician pending care management evaluation. We can involve [facility] but this does not appear to be psychiatric driven, more dementia related. Can ask for telepsych consult for recommendations regarding medications. Medical Records Medical records reviewed: Yes I reviewed the patient's medical records. Discharge Plan Discharge Details Chief Complaint: GenMedical Clinical Impression: Aggressive behavior, Frontal lobe dementia, Wound, open, foot Primary Care Provider: Unknown,Unknown ED Provider: Siva Shaw [facility] New Rx's Prescriptions: No Action amoxicillin-pot clavulanate 875-125 mg Tablet 1 tab PO BID 5 Days Qty: 10 0RF Santyl 250 unit/gram ointment 1 applic topical DAILY Qty: 30 0RF olanzapine 5 mg tablet,disintegrating 5 mg PO BID lorazepam [Ativan] 1 mg tablet 1 mg PO TID Rx Instructions: ALSO X2 PRN DOSES AVAILABLE
[2024-12-22] MEDS: OLANZapine 10 MG VIAL IM ×2 (01:20→06:08)
--- NOTE | 2024-12-22 01:27 | NUR.NOTE ---
Nursing Note: Pt given 10mg IM Zyprexa secondary to escalating behaviors (yelling, kicking, attempting to remove soft wrist restraints). Attempted to redirect with non-pharmacological interventions without success (dimming lights, explanation of situation, providing comforts ie blanket). Pt restrained with two security officers, two nurses and one rad tech. Pt tolerated injection well. Pt with one to one sitter.
--- NOTE | 2024-12-22 02:29 | NUR.NOTE ---
Nursing Note: Pt placed in upper extremity soft restraints at 0100. Pt remained in restraints from 0 to 220, pt remains safe and free of injury. CMST intact bilaterally. Pt resting with eyes closed, left side lying, breathing even and unlabored. Pt continues to have one to one sitter. See chart for restraint documentation.
--- NOTE | 2024-12-22 06:10 | NUR.NOTE ---
Pt jacket and pants are in the soil utility room with bracelet with label on it. Pt was changed and blue scrubs have been put on by nursing staff and security.
--- NOTE | 2024-12-22 07:11 | W.EDPROG ---
Date of service: 12/22/24 Time of Service: 07:11 Medical Decision Making I received signout on this 64-year-old male with history of frontal lobe dementia. He is pending assessment by psychiatry and care management. He received 10 mg twice of intramuscular olanzapine at midnight to 6 AM. He is pending a safe disposition. 7:55 AM I was called back to zone B as patient was reportedly choking on a cheesy potato. When I arrived patient was on the floor. His nurse Doug was performing back thrusts. Nursing gang supervisor Gracie and I encouraged Heimlich maneuver. Heimlich maneuver dislodged some food and patient began breathing again. He never lost consciousness. He began coughing. He has returned to the stretcher. I ordered a portable chest x-ray. Patient's nurse reported that he began wheezing after eating the potato. Will repeat vitals the patient appears to be oxygenating well. 10:24 AM Patient had a repeat oxygen saturation of 97%. Respirations 22. Chest x-ray without any infiltrate. Will continue to monitor the patient in the ED. 3:51 PM I spoke with Pat from [facility]. She is making arrangements to have the patient transported back to his living facility. I wrote him 2 mg of oral lorazepam. We do not have long-acting olanzapine on formulary and I am not comfortable prescribing this medication. 4:45 PM Patient willingly took 2 mg of oral lorazepam. I was in touch with Pat from [facility]. She reported that if patient ramped up his behavior again and refused to take medication that [facility] would not be the most appropriate facility. If this occurs EMS would contact medical control to discuss bypassing [facility] in favor of a tertiary care center with additional consult services such as psychiatry and neurology given the patient's frontal lobe dementia and need for control of his aggressive behavior. I signed transfer paperwork for the patient to be transferred via EMS. Quality:SDOH Health Related Social Needs: No Data to Display Discharge Plan Disposition Patient Disposition: Home Discharge Details Clinical Impression: Aggressive behavior, Frontal lobe dementia, Wound, open, foot Primary Care Provider: Unknown,Unknown ED Provider: Felipe Fontanez Home Meds and New Rx's Prescriptions: New amoxicillin-pot clavulanate 600-42.9 mg/5 mL Suspension For Reconstitution 7.3 ml PO BID Qty: 125 0RF Continued Santyl 250 unit/gram ointment 1 applic topical DAILY Qty: 30 0RF olanzapine 5 mg tablet,disintegrating 5 mg PO BID lorazepam [Ativan] 1 mg tablet 1 mg PO TID Rx Instructions: ALSO X2 PRN DOSES AVAILABLE Discontinued amoxicillin-pot clavulanate 875-125 mg Tablet 1 tab PO BID 5 Days Qty: 10 0RF Discharge Instructions Instructions: Wound Infection Additional Instructions: You are seen in the emergency department for your who have refusal to care for your wounds. Please take these antibiotics as directed. Please return if you develop any fevers cough or difficulty breathing.
--- NOTE | 2024-12-22 07:45 | DI.RAD_ITS ---
Exam(s) XR PORTABLE CHEST AP EXAM: XR PORTABLE CHEST AP CLINICAL HISTORY: Choking TECHNIQUE: 2D digital imaging was performed. COMPARISON: CR XR CHEST 1V IN DI DEPT from 12/17/2024 FINDINGS: Superior most portions of the lung apices are not included on the field of view. LUNGS: Clear. No pleural abnormality seen. HEART: Normal size. AORTA: Normal diameter. BONES: Unremarkable for age. Soft tissues: Unremarkable. IMPRESSION: No acute findings. DATA REPOSITORY: RADIATION DOSE DELIVERED:
[2024-12-22 07:58] VITALS: BP 162/70; PULSE 71; RESP 22; O2SAT 97
--- NOTE | 2024-12-22 08:00 | NUR.NOTE ---
Nursing Note: Pt was served cheese potatoes as he was given last admission and appeared to enjoy. Pt sitting in bed eating and watching TV. This mortgage loan underwriter noted that patient appeared to be choking and this mortgage loan underwriter entered room to patient hunched over and coughing up a small potato. Pt became very restless following this, got up and walked into the milieu with this mortgage loan underwriter following. This mortgage loan underwriter attempted to hear air flow as pt moving towards social area. Pt sat down, then dropped his head on the table and did not appear to be breathing. This mortgage loan underwriter assisted patient to the floor to begin CPR as other staff arrived, including the physician and warehouse team member who stated, He's choking. Do the Heimlich. This mortgage loan underwriter sat patient up, then lifted to chair, performed the Heimlich and a small piece of potato dropped onto floor. Pt assessed further by ED physician. Pt alert and breathing without distress or complications. Vitals assessed, SpO2 97%.
--- NOTE | 2024-12-22 10:06 | DI.VRAD_ITS ---
PROCEDURE INFORMATION: Exam: XR Chest Exam date and time: 12/22/2024 8:17 AM Age: 64 years old Clinical indication: Other: Choking TECHNIQUE: Imaging protocol: Radiologic exam of the chest. Views: 1 view. COMPARISON: CR XR CHEST 1V IN DI DEPT 12/17/2024 4:51 PM FINDINGS: Lungs: Lungs are clear with no infiltrate or nodule. Calcified granuloma in the right lung base. Pleural spaces: Unremarkable. No pleural effusion. No pneumothorax. Heart/Mediastinum: Cardiomediastinal silhouette is normal. Bones/joints: Unremarkable. IMPRESSION: No active cardiopulmonary disease. Dictated and Authenticated by: Tye Sharma MD. Orderin Huseyin Wang MD
--- NOTE | 2024-12-22 12:50 | PDOC.CMSAFE ---
Date of service: 12/22/24 Time of Service: 12:50 Care Management Safety Plan Status Status: Voluntary Guardianship if Applicable Guardianship: Parent (father and mother Beth and Siva Fournier) Reason for Wait Reason for Wait: Other (Scott was brought to the ER by his care facility/crisis bed because he was extremely aggressive. There has been much discussion regarding their taking him back.) Safety Plan Safety Plan: VOLUNTARY FOR INPATIENT PSYCHIATRIC STABILIZATION.? Patient is appropriate in all interactions since arriving at [facility]; Pt has demonstrated appropriate coping and communication skills, has articulated his or her needs and concerns and is fully engaged during staff interactions. Safety plan has been established with patient, and care team, to adhere to patient goals, identify restrictions based on behavioral status, address nutrition, and determine allowed personal belongings, tools for hygiene and personal care. Determine level of activity including ambulation, level of supervision, visitors, and determine privileges based on behaviors and level of engagement by pt. SAFETY PLAN: 1. Will remain on suicide precautions, in paper clothes 2. Will remain in room under direct supervision of one-on-one staff at all times provided by [employer]; YE, PRIVATE SECURITY GUARD meter shop supervisor. 3. May have paper cups, plates, finger foods as well as a plastic spoon with which to eat meals. 4. Follow [facility] Management of the Admitted Behavioral Health Patient policy. 5. Comfort bath system, shower permitted with escort at RN discretion. 6. Personal belongings-soft items permitted at RN discretion. 7. Visitors-none at this time. 8. Activities: soft cart items approved per RN discretion. 9.? Bathroom privileges with escort in the ED. 10. Phone: limited to cordless phone at RN discretion. Due to VOLUNTARY status, if patient wishes to leave [facility], staff will contact [facility] Crisis Screener ([phone]) and [employer] ([phone]) as soon as possible. In the event of elopement, notify [place] [employer] ([phone]). Patient is currently voluntarily at [facility] and seeking inpatient admission when a bed becomes available. [facility] Frontline Broadcaster will continue seeking placement. Please contact the Cover Making Machine Operator [employer] ([phone]) and [facility] Broadcaster ([phone]) for any needed changes in the Safety Plan. Safety plan has been provided to interdepartmental care team.
--- NOTE | 2024-12-22 12:59 | CMPROGNOTE_ITS ---
Date of service: 12/22/24 Time of Service: 12:59 Care Management Progress Note Progress Note Text Progress Note Text: Scott was brought back to [facility] ER last night by his crisis care facility due to aggressive behavior. His care facility is hesitant to take him back and [facility] administration has been fully involved. CM will continue to follow. Guardianship if Applicable Guardianship: Parent (father and mother Beth and Siva Fournier) Social Determinants of Health Screening Will the Patient Participate in the Screening?: Unable to obtain
[2024-12-22] MEDS: Amoxicillin 600 MG/Clav. 42.9 MG 75 ML BTL 7.3 ML PO (13:50)
[2024-12-22] MEDS: LORazepam 1 MG TAB 2 MG PO (16:48)
[2024-12-22] MEDS: OLANZapine 10 MG VIAL 7.5 MG IM (16:59)
[2024-12-22] MEDS: Water,Injection,Sterile 10 ML VIAL (17:37)
[2024-12-22 20:38] VITALS: RESP 17
== END 2024-12-22 20:41 | disposition home or self-care (01) ==
PROVIDERS: Emergency Provider Emergency Medicine
DX: G31.09 Other frontotemporal neurocognitive disorder (principal); F02.80 Dementia in other diseases classified elsewhere, unspecified severity, without behavioral disturbance, psychotic disturbance, mood disturbance, and anxiety; S91.301D Unspecified open wound, right foot, subsequent encounter; S91.302D Unspecified open wound, left foot, subsequent encounter; X58.XXXD Exposure to other specified factors, subsequent encounter
CPT/HCPCS: 00123; 96372; 99285; 71045; 99284; J1790; J2250; J2359

== ENCOUNTER 2025-02-01 17:00 | Outpatient (REF) | payer MEDICARE, MEDICAID, SELFPAY ==
[2025-02-01 15:04] LABS: Bilirubin Negative (Negative); Blood Negative (Negative); Clarity Clear (Clear); Glucose Negative (Negative); Ketones Negative (Negative); Leukocyte Esterase Negative (Negative); Nitrite Negative (Negative); Urobilinogen 0.2 mg/dL (Up to 0.2)
== END 2025-02-01 17:01 | disposition home or self-care (01) ==
LOC: LBN 17:00
PROVIDERS: Visit Provider Psychiatry & Neurology Psychiatry
DX: R39.15 Urgency of urination (principal); R82.89 Other abnormal findings on cytological and histological examination of urine
CPT/HCPCS: 81003; 87086